=== PATIENT | female | born 1950 | race Two or more races ===

== ENCOUNTER 2021-06-21 15:00 | Emergency (ER) | payer OTHER ==
[~2021-06-21] VITALS: Ht 160 cm; Wt 77.1 kg
[2021-06-21] MEDS ORDERED: ASPirin 81 mg TAB PO ONE (15:15)
[2021-06-21 15:43] LABS: Basophils # (auto) 0.1 10 ^3/uL (0-0.2); Eosinophils # (auto) 0.3 10 ^3/uL (0-0.8); Eosinophils % (auto) 3.2 % (0.0-7.0); Hematocrit 43.9 % (36.0-46.0); Hemoglobin 14.5 g/dL (12.2-16.2); Lymphocytes # (auto) 2.6 10 ^3/uL (0.4-5.4); Lymphocytes % (auto) 29.7 % (10.0-50.0); Mean Corpuscular Hemoglobin 29.7 pg (28.0-32.0); Monocytes # (auto) 0.7 10 ^3/uL (0-1.3); Monocytes % (auto) 7.5 % (0.0-12.0); Neutrophils # (auto) 5.2 10 ^3/uL (1.6-8.6); Neutrophils % (auto) 58.6 % (37.0-80.0); Nucleated Red Blood Cells % 0.1 %; Red Blood Cells 4.88 10^6/uL (4.0-5.20); White Blood Cell 8.9 10^3/uL (4.4-10.8)
[2021-06-21 15:53] LABS: Alanine Aminotransferase 22 U/L (13-56); Albumin 3.2 g/dL (3.4-5.0); Anion Gap 6 (5-15); Aspartate Aminotransferase 15 U/L (15-37); BUN/Creatinine Ratio 17.1; Blood Urea Nitrogen 14 mg/dL (7-18); Calcium 9.4 mg/dL (8.5-10.1); Carbon Dioxide 30 mmol/L (21-32); Chloride 106 mmol/L (98-107); GFR African American 88 mL/min; GFR Non-African American 73 mL/min; Glucose 102 mg/dL (74-106); Potassium 3.7 mmol/L (3.5-5.1); Sodium 142 mmol/L (136-145)
[2021-06-21 15:57] LABS: Alkaline Phosphatase 82 U/L (45-117); Bilirubin, Total 0.3 mg/dL (0.2-1.0); Total Protein 7.5 g/dL (6.4-8.2)
[2021-06-21] MEDS ORDERED: ASPirin 81 mg TAB ONE (20:00)
[2021-06-21 22:25] VITALS: BP 167/62
== END 2021-06-22 03:37 | disposition home or self-care (01) ==
LOC: ER 15:00
DX: R00.2 Palpitations (principal)
CPT/HCPCS: 36415; 71046; 80053; 83735; 83880; 84484; 85025; 93005

== ENCOUNTER 2024-02-05 18:09 | Emergency (ER) | payer OTHER ==
[~2024-02-05] VITALS: Ht 160 cm; Wt 86.2 kg
[2024-02-05 18:55] LABS: Basophils # (auto) 0.1 10 ^3/uL (0-0.2); Basophils % (auto) 0.8 % (0.0-2.0); Eosinophils # (auto) 0.3 10 ^3/uL (0-0.8); Eosinophils % (auto) 3.6 % (0.0-7.0); Hematocrit 43.2 % (36.0-46.0); Hemoglobin 14.4 g/dL (12.2-16.2); Lymphocytes # (auto) 2.3 10 ^3/uL (0.4-5.4); Lymphocytes % (auto) 31.8 % (10.0-50.0); Mean Corpuscular Hemoglobin 29.7 pg (28.0-32.0); Mean Corpuscular Hgb Conc. 33.3 g/dL (32.0-36.0); Mean Corpuscular Volume 89.4 fL (80.0-100.0); Monocytes # (auto) 0.5 10 ^3/uL (0-1.3); Neutrophils # (auto) 4.2 10 ^3/uL (1.6-8.6); Neutrophils % (auto) 56.8 % (37.0-80.0); Nucleated Red Blood Cells % 0.1 %; Red Blood Cells 4.84 10^6/uL (4.0-5.20); White Blood Cell 7.3 10^3/uL (4.4-10.8)
[2024-02-05 19:11] LABS: Alanine Aminotransferase 17 U/L (7-40); Albumin 4.2 g/dL (3.2-4.8); Alkaline Phosphatase 91 U/L (46-116); Anion Gap 5 (5-15); Aspartate Aminotransferase 20 U/L (13-40); BUN/Creatinine Ratio 19.8 (10.0-20.0); Blood Urea Nitrogen 16 mg/dL (9-23); Calcium 9.8 mg/dL (8.5-10.1); Carbon Dioxide 28 mmol/L (20-30); Chloride 108 mmol/L (98-107); Glucose 98 mg/dL (74-106); Sodium 141 mmol/L (136-145)
[2024-02-05 19:12] LABS: Bilirubin, Total 0.2 mg/dL (0.2-1.0)
[2024-02-06] MEDS ORDERED: AMOX875T4 PO (00:42)
[2024-02-06 00:48] VITALS: BP 148/57; TEMP 98.3
[2024-02-06 00:49] VITALS: PULSE 74; RESP 18; O2SAT 97
[2024-02-06] MEDS: cefTRIAXone SOD 1,000 MG VL IM ONE (01:14)
== END 2024-02-06 01:18 | disposition home or self-care (01) ==
LOC: ER 18:09
DX: N39.0 Urinary tract infection, site not specified (principal); R53.1 Weakness; R51.9 Headache, unspecified; E78.5 Hyperlipidemia, unspecified; E03.9 Hypothyroidism, unspecified
CPT/HCPCS: 36415; 70450; 80053; 84484; 85025; 96372; 99285; J0696